=== PATIENT | female | born 1970 | race Caucasian/White ===

== ENCOUNTER 2017-01-17 06:07 | Emergency (ER) ==
[2017-01-17 06:16] VITALS: BP 130/85; TEMP 97.2; BMI 35.1
--- NOTE | 2017-01-17 06:43 | ED.PDOC ---
General ED Provider: Dr. 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 Time Seen by Physician: 06:15 Mode of Arrival: Walk-In Information Source: Patient Exam Limitations: No limitations Primary Care Provider: KAREL KIRK Nursing and Triage Documentation Reviewed and Agree: Yes Musculoskeletal Complaint Exam - Back Pain Complaint/Exam Mechanism of Injury: Reports: No known trauma Onset/Duration: while at work Symptoms Are: Still present Timing: Constant Episodes Lasting: Hours Initial Severity: Mild Current Severity: Moderate Location: Reports: Discrete Character: Reports: Aching, Throbbing, Spasmodic Aggravating: Reports: Movements, Lifting, Bending Alleviating: Reports: None Associated Signs and Symptoms: Denies: Swelling, Redness, Bruising, Fever, Weakness, Numbness, Tingling, Abdominal pain, Flank pain, Bladder incontinence, Bowel incontinence, Weight loss, Pain with weight bearing Related History: Reports: Similar episode TAD Risk Factors: Reports: None AAA Risk Factors: Reports: None Cauda Equina Risk Factors: Reports: None Epidural Abcess Risk Factors: Reports: None Related Surgical History: Reports: None Focal Tenderness: Yes Paraspinal Muscle Tenderness: Yes Paraspinal Muscle Spasm: No Scoliosis: No Lordosis: No Kyphosis: No SLR Test: Right Negative, Left Negative Hip Motion Testing Pain: Right Negative, Left Negative Focal Weakness: Present: None Focal Sensory Loss: Present: None Gait: Present: Abnormal Differential Diagnoses: Strain, Sprain Review of Systems - Review Of Systems Constitutional: Reports: No symptoms Eyes: Reports: No symptoms Ears, Nose, Mouth, Throat: Reports: No symptoms Respiratory: Reports: No symptoms Cardiac: Reports: No symptoms GI: Reports: No symptoms : Reports: No symptoms Musculoskeletal: Reports: Back pain, Muscle pain, Muscle stiffness Skin: Reports: No symptoms Neurological: Reports: No symptoms Endocrine: Reports: No symptoms Hematologic/Lymphatic: Reports: No symptoms All Other Systems: Reviewed and Negative Past Medical History - Past Medical History Endocrine: Reports: None Cardiovascular: Reports: Hypertension Respiratory: Reports: None Hematological: Reports: None Gastrointestinal: Reports: None Genitourinary: Reports: None Neuro/Psych: Reports: Anxiety, Depression Musculoskeletal: Reports: None Cancer: Reports: None Last Menstrual Period: now - Surgical History General Surgical History: Reports: (1993) - Family History Family History: Reports: None - Social History Smoking Status: Current every day smoker Hx Substance Use: No Alcohol Screening: None - Immunizations Tetanus Shot up to Date: Yes Physical Exam - Physical Exam Appearance: Well-appearing, No pain distress, Well-nourished Eyes: DAREK, EOMI, Conjunctiva clear ENT: Ears normal, Nose normal, Oropharynx normal Neck: Supple Respiratory: Airway patent, Breath sounds clear, Breath sounds equal, Respirations nonlabored Cardiovascular: RRR, Pulses normal, No rub, No murmur GI/: Soft, Nontender, No masses, Bowel sounds normal, No Organomegaly Musculoskeletal: Limited ROM Skin: Warm, Dry, Normal color Neurological: Sensation intact, Motor intact, Reflexes intact, Cranial nerves intact, Alert, Oriented Psychiatric: Affect appropriate, Mood appropriate Critical Care Note - Critical Care Note Total Time (mins): 0 Course - Course Vital Signs: Temp Pulse Resp BP Pulse Ox 01/17/17 06:08 97.2 F L 59 L 20 130/85 97 Departure - Departure Time of Disposition: 06:43 Disposition: HOME SELF-CARE Discharge Problem: Backache Instructions: Low Back Strain (ED) Condition: Good Pt referred to PMD for follow-up: Yes Additional Instructions: medrol dose pack--norflex 100mg q 12hrs #30--norco 7.5mg q 4hrs prn pain #15-- off work tonight--f/u with pcp Allergies/Adverse Reactions: Allergies benazepril Allergy (Verified 01/17/17 06:16) Anaphylaxis hydrochlorothiazide Allergy (Verified 01/17/17 06:16) Anaphylaxis Home Medications: Ambulatory Orders Amlodipine Besylate [Norvasc] 5 mg PO DAILY #30 11/15/15 Duloxetine HCl [Cymbalta] 60 mg PO DAILY #30 11/15/15 Indapamide 2.5 mg PO DAILY 30 Days 11/15/15 Lorazepam [Ativan] 0.5 mg PO PRN 30 Days 11/15/15 Albuterol Sulfate [Proair Hfa] 2 puff IH Q4H PRN #1 puff 02/05/16 Benzonatate [Tessalon Perles] 100 mg PO TID PRN #30 capsule 02/05/16 Propranolol HCl [Inderal] 10 mg PO DAILY 01/17/17 Disposition Discussed With: Patient
== END 2017-01-17 06:55 | disposition home or self-care (01) ==
LOC: ED 06:07
DX: M54.9 Dorsalgia, unspecified (principal); X50.0XXA Overexertion from strenuous movement or load, initial encounter; Y99.0 Civilian activity done for income or pay; F17.210 Nicotine dependence, cigarettes, uncomplicated
CPT/HCPCS: 99283

== ENCOUNTER 2018-02-07 06:19 | Inpatient (IN) | payer OTHER ==
[2018-02-07] MEDS ORDERED: RACEPINEPHRINE 2.25% NEB STA (06:22)
[2018-02-07] MEDS ORDERED: SOLU-MEDROL 125 MG IVP STA (06:22)
[2018-02-07] MEDS ORDERED: DUONEB NEB STA (06:22)
--- NOTE | 2018-02-07 06:27 | ED.PDOC ---
General Stated Complaint: Patient is having shortness of breath. says its one of her allergic reaction state. she did take Epi, Atarax and Benadryl. Time Seen by Physician: 06:25 Nursing and Triage Documentation Reviewed and Agree: Yes Reviewed sepsis parameters & appropriate labs ordered?: No <FAUZIA ORTIZ - Last Filed: 02/07/18 06:56> System Inflammatory Response Syndrome: Not Applicable System Inflammatory Response Syndrome: Not Applicable <GERDA ALEMAN - Last Filed: 02/07/18 09:38> ED Provider: Dr. GERDA ALEMAN Chief Complaint: Allergic Reaction Primary Care Provider: KAREL KIRK Sepsis Protocol: For patient's 13 years and over: Temp is 96.8 and below OR 101 and greater Pulse >90 BPM Resp >20/minute Acutely Altered Mental Status Are patient's symptoms suggestive of a new infection, such as: -Pneumonia -Skin, Soft Tissue -Endocarditis -UTI -Bone, Joint Infection -Implantable Device -Acute Abdominal Infection -Wound Infection -Meningitis -Blood Stream Catheter Infection -Unknown Environmental Complaint Exam - Allergic Reaction Complaint/Exam Symptoms Are: Still present Timing: Constant Initial Severity: Moderate Current Severity: Severe Location: Discrete Aggravating: Reports: None Alleviating: Reports: None Associated Signs and Symptoms: Reports: Difficulty breathing, Wheezing, Throat tightening. Denies: Cough, Chest pain, Hoarseness, Throat swelling, Rash, Abdominal pain, Diaphoresis, Lightheadedness, Syncope, Nausea, Vomiting Possible Reaction To: Reports: Unknown Related History: Similar episode Diphenhydramine Prior to Arrival: Yes Epinephrine Auto Injector Prior to Arrival: Yes Respiratory Distress: Moderate Findings: Present: Dysphagia, Hoarseness Differential Diagnoses: Airway Obstruction, Angioedema, Bronchospasm, Local Allergic Reaction <FAUZIA ORTIZ - Last Filed: 02/07/18 06:56> Review of Systems - Review Of Systems Constitutional: Reports: No symptoms Eyes: Reports: No symptoms Ears, Nose, Mouth, Throat: Reports: No symptoms Respiratory: Reports: Cough, Short of air Cardiac: Reports: No symptoms GI: Reports: No symptoms : Reports: No symptoms Musculoskeletal: Reports: No symptoms Skin: Reports: No symptoms Neurological: Reports: No symptoms Endocrine: Reports: No symptoms Hematologic/Lymphatic: Reports: No symptoms All Other Systems: Reviewed and Negative <FAUZIA ORTIZ - Last Filed: 02/07/18 06:56> Past Medical History - Past Medical History Previously Healthy: Yes Endocrine: Reports: None Cardiovascular: Reports: Hypertension Respiratory: Reports: None Hematological: Reports: None Gastrointestinal: Reports: None Genitourinary: Reports: None Neuro/Psych: Reports: Anxiety, Depression Musculoskeletal: Reports: None Cancer: Reports: None - Surgical History General Surgical History: Reports: (1993) - Family History Family History: Reports: None - Social History Smoking Status: Current every day smoker Smoking Cessation Counseling Time: > 10 min Hx Substance Use: No Alcohol Screening: None <FAUZIA ORTIZ - Last Filed: 02/07/18 06:56> Physical Exam - Physical Exam Appearance: Ill-appearing, Obese Ill-appearing: Severe Eyes: EOMI, Conjunctiva clear ENT: Ears normal, Nose normal, Oropharynx normal (tongue not swollen at this time) Respiratory: Breath sounds diminished, Crackles, Rhonchi Cardiovascular: RRR, Pulses normal, No rub, No murmur GI/: Soft, Nontender, No masses, Bowel sounds normal, No Organomegaly Musculoskeletal: Normal strength, ROM intact, No edema, No calf tenderness Skin: Warm, Dry, Normal color Neurological: Sensation intact, Motor intact, Reflexes intact, Cranial nerves intact, Alert, Oriented Psychiatric: Affect appropriate, Mood appropriate <FAUZIA ORTIZ - Last Filed: 02/07/18 06:56> Physician Notification - Case Discussed Time of Notification: 06:57 (Dr Aleman) <FAUZIA ORTIZ - Last Filed: 02/07/18 06:56> Critical Care Note - Critical Care Note Total Time (mins): 30 <FAUZIA ORTIZ - Last Filed: 02/07/18 06:56> Course - Course Hematology/Chemistry: 02/07/18 06:50 02/07/18 06:50 <GERDA ALEMAN - Last Filed: 02/07/18 09:38> - Course Orders, Labs, Meds: Lab Review 02/07/18 02/07/18 06:50 06:50 WBC 10.84 H RBC 4.33 Hgb 13.2 Hct 37.6 MCV 86.8 MCH 30.5 MCHC 35.1 RDW Coeff of Gerardo 12.6 Plt Count 333 Immature Gran % (Auto) 0.4 Neut % (Auto) 57.1 Lymph % (Auto) 35.1 Gordon % (Auto) 6.0 Eos % (Auto) 1.1 Baso % (Auto) 0.3 Immature Gran # (Auto) 0.0 Neut # (Auto) 6.2 Lymph # (Auto) 3.8 H Gordon # (Auto) 0.7 Eos # (Auto) 0.1 Baso # (Auto) 0.0 Sodium 140 Potassium 3.9 Chloride 107 Carbon Dioxide 23 Anion Gap 13.9 BUN 14 Creatinine 0.78 Estimated GFR (MDRD) 80.00 BUN/Creatinine Ratio 17.94 Glucose 146 H Calcium 8.8 Total Bilirubin 0.2 AST 15 ALT 15 Alkaline Phosphatase 64 Total Creatine Kinase 145 CK-MB (CK-2) 1.9 CK-MB (CK-2) % 1.30967 Troponin I 0.0120 Total Protein 6.6 Albumin 3.5 Globulin 3.1 Albumin/Globulin Ratio 1.13 Orders Category Date Time Status EKG-(ED ONLY) Stat CARDIO 02/07/18 06:40 Completed EKG-(ED ONLY) Stat CARDIO 02/07/18 07:17 Completed EKG-(ED ONLY) Stat CARDIO 02/07/18 08:30 Completed NEBULIZER TREATMENT Stat CARDIO 02/07/18 06:23 Completed Saline Lock [ED IV/MEDIPORT/POWERPORT] .ONCE EMERGENCY 02/07/18 06:31 Active ANTI-NUCLEAR ANTIBODY SCREEN Stat LAB 02/07/18 08:45 Received ANTI-dsDNA ANTIBODIES Stat LAB 02/07/18 08:45 Received ANTICARDIOLIPIN AB IgA/G/M Routine LAB 02/07/18 08:45 Received C1 ESTERASE INHIBITOR Routine LAB 02/07/18 08:45 Received CBC W/ AUTO DIFF Stat LAB 02/07/18 06:50 Completed COMPLEMENT C4 Routine LAB 02/07/18 08:45 Received COMPREHENSIVE METABOLIC PANEL Stat LAB 02/07/18 06:50 Completed CREATINE KINASE Stat LAB 02/07/18 06:50 Completed SERUM PROTEIN ELECTROPHORESIS Routine LAB 02/07/18 08:45 Received TROPONIN I Stat LAB 02/07/18 06:50 Completed 0.9 % Sodium Chloride [Saline Flush] MEDS 02/07/18 06:31 Active 1 syr IVF PRN PRN Epinephrine Amp [Epinephrine 1:1,000 Amp] MEDS 02/07/18 07:11 Discontinued 1 mg .ROUTE .STK-MED ONE Epinephrine [Adrenalin 1:1000 Sdv] MEDS 02/07/18 07:01 Discontinued 0.3 mg IM ONCE STA Ipratropium/Albuterol Neb [Duoneb] MEDS 02/07/18 06:22 Discontinued 1 vial NEB ONCE STA Methylprednisolone Sod Succ/Pf [Solu-Medrol 125 mg] MEDS 02/07/18 06:22 Discontinued 125 mg IVP ONCE STA Morphine Sulfate [Morphine 2 mg/ml Syringe] MEDS 02/07/18 06:40 Discontinued 2 mg IVP ONCE STA Ondansetron HCl/Pf [Zofran 4 mg/2 ml] MEDS 02/07/18 06:40 Discontinued 4 mg IVP ONCE STA Racepinephrine Neb [Racepinephrine 2.25%] MEDS 02/07/18 06:22 Discontinued 1 vial NEB ONCE STA Sodium Chloride 0.9% [Sodium Chloride] 1,000 ml MEDS 02/07/18 07:17 Active IV 125 mls/hr Medications Generic Name Dose Route Start Last Admin Trade Name Freq PRN Reason Stop Dose Admin Sodium Chloride 1,000 mls @ 125 mls/hr 02/07/18 07:17 02/07/18 07:25 Sodium Chloride IV 02/07/18 15:16 125 mls/hr .Q8H STA Administration Sodium Chloride 1 syr 02/07/18 06:31 02/07/18 06:59 Saline Flush IVF 1 syr PRN PRN Administration To flush IV Discontinued Medications Generic Name Dose Route Start Last Admin Trade Name Freq PRN Reason Stop Dose Admin Albuterol/Ipratropium 1 vial 02/07/18 06:22 02/07/18 06:25 Duoneb NEB 02/07/18 06:23 1 vial ONCE STA Administration Epinephrine 1 vial 02/07/18 06:22 02/07/18 06:40 Racepinephrine 2.25% NEB 02/07/18 06:23 1 vial ONCE STA Administration Epinephrine HCl 0.3 mg 02/07/18 07:01 02/07/18 07:03 Adrenalin 1:1000 Sdv IM 02/07/18 07:02 0.3 mg ONCE STA Administration Methylprednisolone Sodium Succinate 125 mg 02/07/18 06:22 02/07/18 06:20 Solu-Medrol 125 Mg IVP 02/07/18 06:23 125 mg ONCE STA Administration Morphine Sulfate 2 mg 02/07/18 06:40 02/07/18 06:56 Morphine 2 Mg/Ml Syringe IVP 02/07/18 06:41 2 mg ONCE STA Administration Ondansetron HCl 4 mg 02/07/18 06:40 02/07/18 06:56 Zofran 4 Mg/2 Ml IVP 02/07/18 06:41 4 mg ONCE STA Administration Vital Signs: Temp Pulse Resp BP Pulse Ox 02/07/18 06:22 97.8 F 52 L 14 133/81 89 L Departure - Departure Pt referred to PMD for follow-up: Yes IPMP verified?: No Disposition Discussed With: Patient, Family <FAUZIA ORTIZ - Last Filed: 02/07/18 06:56> - Departure Time of Disposition: 09:37 Pt referred to PMD for follow-up: Yes <GERDA ALEMAN - Last Filed: 02/07/18 09:38> - Departure Disposition: ADMITTED INPATIENT Discharge Problem: Shortness of breath Allergic reaction Qualifiers: Encounter type: initial encounter Qualified Code(s): T78.40XA - Allergy, unspecified, initial encounter Instructions: General Allergic Reaction (ED) Condition: Good Additional Instructions: The Epi pen patient used was . Allergies/Adverse Reactions: Allergies benazepril Allergy (Verified 02/07/18 06:31) Anaphylaxis hydrochlorothiazide Allergy (Verified 02/07/18 06:31) Anaphylaxis Home Medications: Ambulatory Orders Duloxetine HCl [Cymbalta] 60 mg PO DAILY #30 11/15/15 Lorazepam [Ativan] 0.5 mg PO PRN 30 Days 11/15/15 Albuterol Sulfate [Proair Hfa] 2 puff IH Q4H PRN #1 puff 02/05/16 Propranolol HCl [Inderal] 10 mg PO DAILY 01/17/17 Diphenhydramine HCl [Benadryl] 25 mg PO Q6H PRN 02/07/18 Epinephrine [Epipen 2-Beto] 0.3 mg IJ DIRECTED PRN 02/07/18 Hydroxyzine HCl [Atarax] 25 mg PO DIRECTED PRN 02/07/18
[2018-02-07] MEDS ORDERED: ZOFRAN 4 MG/2 ML IVP STA (06:40)
[2018-02-07] MEDS ORDERED: MORPHINE 2 MG/ML SYRINGE IVP STA (06:40)
[2018-02-07] MEDS ORDERED: EPIPEN TWINPAK IM STA ×2 (06:52→06:56)
[2018-02-07] MEDS ORDERED: EPINEPHRINE IV SCH (07:00)
[2018-02-07] MEDS ORDERED: SODIUM CHLORIDE IV SCH (07:00)
[2018-02-07] MEDS ORDERED: ADRENALIN 1:1000 SDV IM STA (07:01)
[2018-02-07] MEDS ORDERED: EPINEPHRINE 1:1,000 AMP ONE (07:11)
[2018-02-07] MEDS ORDERED: SODIUM CHLORIDE 1,000 ML IV STA ×2 (07:17→09:42)
[2018-02-07] MEDS ORDERED: PROAIR HFA IH PRN (09:42)
[2018-02-07] MEDS ORDERED: ATIVAN PO SCH (10:00)
[2018-02-07 10:32] VITALS: BMI 42.4
[2018-02-07] MEDS ORDERED: SOLU-MEDROL 40 MG IVP SCH (12:00)
--- NOTE | 2018-02-07 13:57 | DI ---
EXAM: Chest two view, frontal and lateral views. HISTORY: Dyspnea. COMPARISON: 02/04/2016. FINDINGS: The heart size is normal. There is no pulmonary vascular congestion. The lungs are clear . No pleural effusion or pneumothorax is seen. No acute osseous abnormality identified. Since the prior study, there has been no significant interval change. IMPRESSION: No acute cardiopulmonary process.
[2018-02-07] MEDS ORDERED: ATIVAN PO PRN (14:38)
--- NOTE | 2018-02-07 14:49 | CT ---
EXAM: CT Abdomen without contrast. CT Pelvis without contrast. HISTORY: Lower abdominal pain. COMPARISON: None available. TECHNIQUE: Multiple axial images of the abdomen and pelvis were obtained without intravenous contras t. Images were reformatted in the sagittal and coronal plane. FINDINGS: Please note that evaluation of the abdominal and pelvic structures is limited due to lack of intravenous contrast. Mild subsegmental atelectasis seen in the left lower lobe. Bilateral spondylolysis seen at L4 with a pproximately 0.3 cm anterolisthesis of L4 on L5 and associated moderate disc space narrowing. Mild d egenerative changes seen throughout the remainder of the spine. Gallbladder is contracted. The liver, pancreas, spleen, adrenal glands, and kidneys demonstrate norm al contour. No calcified renal stones or hydronephrosis detected. Descending duodenal diverticulum noted. The bowel is normal in course and caliber without evidence f or obstruction or inflammatory process. The appendix is normal. Minimal colonic diverticulosis is p resent. Small fat-containing umbilical hernia identified. Urinary bladder is unremarkable. Phlebol iths noted in the pelvis. Uterus demonstrates normal contour. No free fluid or free air identified. IMPRESSION: No acute abnormality within the abdomen or pelvis.
[2018-02-07] MEDS ORDERED: SODIUM CHLORIDE 0.45%-KCL 20 MEQ IV SCH (17:00)
[2018-02-07] MEDS: SODIUM CHLORIDE 0.45%-KCL 20 MEQ 1,000 ML IV SCH (17:00)
[2018-02-07] MEDS ORDERED: SODIUM CHLORIDE 1,000 ML IV SCH (17:30)
[2018-02-08] MEDS: SODIUM CHLORIDE 0.45%-KCL 20 MEQ 1,000 ML IV SCH (04:45)
[2018-02-08 10:56] VITALS: BP 126/76; TEMP 98.2
--- NOTE | 2018-02-13 13:55 | DS ---
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 The patient's oxygen saturation was recorded at 89 on presentation to the emergency room. The patient had this episode over the last seven years and was less frequent since the beginning 7 years ago. The patient did give herself an injection of EpiPen and also took Benadryl, as well as Atrax before presentation to the emergency room. The patient's vital signs at presentation to the emergency room was recorded at 6: 22 a.m. showing a temperature of 97.8, pulse 52, blood pressure 133/81, respiratory rate at 14, oxygen saturation 89 at room air. The patient while in the emergency room had received DuoNeb nebulizer followed by Racepinephrine nebulization and Solu-Medrol 125 mg IV, Morphine 2 mg IV and Zofran. All of those were given before 7 a.m. At 7:03 the patient was given 0.3 cc of 1:1000 Epinephrine IM. HOSPITAL COURSE: The patient upon admission to the floor was noted to have a temperature of 98.1, pulse of 54, blood pressure 122/76 on the left and 134/80 on the right, respiratory rate 16, oxygen saturation 97 at 2 liters. She was alert and oriented and no longer dyspneic, nor tachypneic. The patient's CBC on admission showed a WBC of 10,840, hemoglobin 13.2, hematocrit 37.6, platelet count 333,000. CMP unremarkable, except for a blood sugar of 146. Troponin and CK were requested, but were within normal. Complement C4 27, within normal range for this machine is 14 to 44. Other work-up that was ordered from the emergency room consisted of anti-cardiolipin IgG and IgA and IgM. All of the results were normal. CI Esterase inhibitor level pending. Serum electrophoresis- no results. Chest x-ray no acute cardiopulmonary processes. No mention of any adenopathies. CT scan of the abdomen and pelvis without contrast-there is no mention of any mesenteric total enlargement in the abdomen. The CT scan of the abdomen and pelvis was read as no acute abnormalities within the abdomen or pelvis. I had talked to the patient in the presence of her mother, as well as her . I tried to explain to them that we are looking for another diagnosis other than just a plain allergy. The test results are still pending. The patient today, prior to discharge is alert, ambulatory with movement of all extremities and no dyspnea, nor tachypnea and no cyanosis. The patient has no swelling of the hands. CHEST: Unremarkable. LUNGS: Clear to auscultation in both sides. No rales or wheezing. HEART: Audible and regular with good tones. No murmurs. ABDOMEN: Protuberant and soft with no tenderness. Bowel sounds are active. LOWER EXTREMITIES: No edema. No redness. Pedal pulses are present. FINAL DIAGNOSES: 1. 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 2. HISTORY OF HYPERTENSION ON MEDICATION 3. HISTORY OF DEPRESSION ON MEDICATION 4. HISTORY OF ANXIETY ON MEDICATION 5. ELEVATED BLOOD SUGAR, MAYBE MEDICATION INDUCED 6. BMI MARKEDLY ELEVATED 7. CHRONIC TOBACCO USE AND ABUSE, PERSISTENT 8. BRADYCARDIA WITH REASON UNDETERMINED, PROBABLY MEDICATION INDUCED PLAN: 1. See her regular provider towards the end of this week or early next week. 2. Results will be provided to her, but are not yet available at this time. 3. She should go to the emergency room if she would have recurrence of the problem. 4. EpiPen prescription was provided. JADYN
--- NOTE | 2018-02-13 15:22 | HP ---
CHIEF COMPLAINT: Swelling of the tongue and problems breathing. SOURCE OF HISTORY: Patient. HISTORY OF PRESENT ILLNESS: The patient works as night echocardiography radiology technologist and was about to go home. The patient had some swelling of the hands and redness and she went to the bathroom and also complained of swelling of the tongue, plus shortness of breath and was noted to have some wheezing when she presented to the emergency room. She was checked in at 6:22 a.m. The patient claimed that it began some 15 minutes ago and had given herself an injection of the EpiPen. She also took Benadryl 25 mg, as well as Atrax 50 mg at 6:12 a.m. The patient was found to be clammy and complained of her ears beginning to swell and was noted to have an audible wheeze. The patient's oxygen saturation was 89 at room air. Pulse rate was 52 and respiratory rate at 14, blood pressure 133/81. The patient was seen by the emergency room physician and was given the following medications, DuoNeb nebulizer at 6:25 a.m., Racepinephrine nebulizer 6:40 a.m., Solu-Medrol 125 mg 6:20 a.m., Morphine sulfate 2 mg IV 6: 56 a.m., Zofran 4 mg IV at 6:56 a.m. and Epinephrine Hydrochloride 1:1000 0.3 cc IM at 7:03. Labs were done and the patient was stabilized and felt that she needed further observation and admission and so she was admitted and left the emergency room at 9:37 a.m. PAST PERSONAL HISTORY: Hypertension Depression Anxiety Recurrent edema beginning with the hands, sometimes the ears and tongue with no obvious food or medication triggers. She had been given EpiPen since some seven years ago, plus Benadryl and Atrax. She had these episodes since about 7 years ago and had about 4 episodes in the first year. The patient since then had experienced less frequent episodes of the same and the last one was about 2 years ago. There was no food triggers. 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 PAST SURGICAL HISTORY: once in 1993 FAMILY HISTORY: Diabetic history in the paternal side. No significant heredofamilial disease in the maternal side. No one in the family also has any episodes of swelling like she is experiencing. None on the paternal or maternal side, including ascendent relatives. 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 She does smoke cigarettes and smokes regularly daily. No alcoholic beverages. HOME MEDICATIONS: Cymbalta 60 mg daily Ativan 0.5 mg tablet prn ProAir Hfa two puffs every 4 hours prn Inderal 10 mg daily Benadryl 25 mg capsule every 6 hours prn EpiPen 2 packs 0.3 mg per 0.3 cc auto inject Atrax 25 mg tablet prn ALLERGIES: The patient had anaphylactic reaction to Benazepril, as well as Hydrochlorothiazide. REVIEW OF SYSTEMS: At the time of examination on the floor. CONSTITUTIONAL: The patient has no fever and no chills. Somewhat tired from the ordeal and a bit nervous probably secondary to the Epinephrine. CARTON MAKER: Denies any headaches or visual disturbances. VISUAL: Negative. AUDITORY: Negative. RESPIRATORY: The patient did have some episodes of shortness of breath prior to ER. She no longer has that problem when admitted to the floor. CARDIOVASCULAR: No chest pain and no chest tightness. GASTROINTESTINAL: Some lower abdominal pain, but the patient is on her menstrual cycle. GENITOURINARY: Denies any pain on urination. MUSCULOSKELETAL: Negative. ENDOCRINE: Negative. INTEGUMENT: No edema in the hands, nor on the ears or tongue. No pruritus. No urticaria. HEMATOLOGIC: Denies any history of prolonged bleeding. PSYCHIATRIC: Affect is normal. PHYSICAL EXAMINATION: GENERAL: We have a 47 year old female admitted to the hospital because of sudden episode of swelling of the hands with some swelling of the tongue, as well as problems breathing. She injected herself with EpiPen that she carries with her. The EpiPen that was used was already . This patient had not had any of this in the last two years. She was not dyspneic, nor tachypneic and no cyanosis. She was responsive, alert and oriented. VITAL SIGNS: On the floor at 10:22 a.m., temperature 98.1 oral, pulse rate 54, blood pressure left 122/76, right 134/80, respiratory rate 16, oxygen saturation 97 at 2 liters. Recorded at 5'9" on the floor and 287 pounds and 4.1 ounces. BMI 42. HEAD: Unremarkable. FACE: Symmetrical and equal with no facial weakness and no cyanosis. EYES: Pupils equal/reactive to light. Conjunctivae not pale. Sclerae not icteric. MOUTH: Unremarkable. THROAT: No inflammation, tumors or exudate. NECK: No masses. No bruit. No tenderness. No rigidity. CHEST: Essentially symmetrical and equal with good expansion. LUNGS: Breath sounds are heard in both sides. No rales or wheezing. HEART: Audible and regular with good tones. Not tachycardic. No murmurs. ABDOMEN: Protuberant and soft with no remarkable tenderness. No guarding. Bowel sounds are active. No masses palpable. EXTERNAL GENITALIA: Not examined. PELVIC AND RECTAL: Not performed. LOWER EXTREMITIES: Essentially symmetrical and equal. Pedal pulses are present. UPPER EXTREMITIES: Symmetrical and equal. ASSESSMENT: 1. 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 STUDIES TO MAKE A DIAGNOSIS FOR THE AAE IN PROGRESS. IT IS IMPORTANT TO MAKE A DIAGNOSIS, SINCE THE TREATMENT WOULD BE DIFFERENT FROM THE USUAL ALLERGIC REACTION. 2. HISTORY OF HYPERTENSION 3. HISTORY OF DEPRESSION 4. HISTORY OF ANXIETY 5. MARKEDLY ELEVATED BMI OF 42 6. CHRONIC TOBACCO USE AND ABUSE MTDD
== END 2018-02-08 14:10 | disposition home or self-care (01) | DRG 642 ==
LOC: ED 06:19 → SCU 10:01
PROVIDERS: ADMIT General Practice; ATTEND General Practice
DX: D84.1 Defects in the complement system (principal); Z68.41 Body mass index [BMI] 40.0-44.9, adult; T46.4X5A Adverse effect of angiotensin-converting-enzyme inhibitors, initial encounter; R22.33 Localized swelling, mass and lump, upper limb, bilateral; R22.0 Localized swelling, mass and lump, head; M79.89 Other specified soft tissue disorders; T50.2X5A Adverse effect of carbonic-anhydrase inhibitors, benzothiadiazides and other diuretics, initial encounter; R06.02 Shortness of breath; R00.1 Bradycardia, unspecified; T50.905A Adverse effect of unspecified drugs, medicaments and biological substances, initial encounter; I10 Essential (primary) hypertension; F41.8 Other specified anxiety disorders; F17.210 Nicotine dependence, cigarettes, uncomplicated; Z79.899 Other long term (current) drug therapy; Z88.8 Allergy status to other drugs, medicaments and biological substances
CPT/HCPCS: 36415; 80053; 82550; 82553; 84165; 84484; 85025; 86038; 86160; 86225; 93005; 93010; 94640; 96361; 96372; 96374; 96375; 99223; 99239; 99284

== ENCOUNTER 2018-03-05 16:59 | Outpatient (CLI) | payer OTHER | END 2018-03-05 17:00 | disposition home or self-care (01) | LOC: LAB 16:59 | PROVIDERS: ATTEND Allergy & Immunology | DX: T78.2XXA Anaphylactic shock, unspecified, initial encounter (principal); T78.3XXA Angioneurotic edema, initial encounter; L50.1 Idiopathic urticaria; L50.8 Other urticaria; L50.9 Urticaria, unspecified; T63.484A Toxic effect of venom of other arthropod, undetermined, initial encounter; F17.219 Nicotine dependence, cigarettes, with unspecified nicotine-induced disorders | CPT/HCPCS: 36415; 82306; 83516 ==

== ENCOUNTER 2018-08-07 17:47 | Outpatient (CLI) | END 2018-08-07 17:48 | disposition home or self-care (01) | LOC: LAB 17:47 | PROVIDERS: ATTEND Family Medicine | DX: N91.2 Amenorrhea, unspecified (principal) | CPT/HCPCS: 36415; 84702 ==